=== PATIENT | male | born 1955 | race Caucasian/White ===

== ENCOUNTER 2023-08-31 10:40 | Emergency (ER) | payer MEDICARE ==
[~2023-08-31] VITALS: Ht 172.7 cm; Wt 114.0 kg
[2023-08-31 11:05] VITALS: BP 146/95; PULSE 80; O2SAT 96
[2023-08-31] MEDS ORDERED: morphine 2 MG/ML inj. syringe IM ONE (12:10)
[2023-08-31] MEDS ORDERED: ondansetron 4mg rapidly disintigrating tab PO ONE (12:10)
[2023-08-31] MEDS ORDERED: predniSONE 20 mg tablet PO ONE (12:10)
[2023-08-31] MEDS ORDERED: ketorolac tromethamine 15mg/ml inj. IM ONE (12:10)
[2023-08-31] MEDS ORDERED: CYCL-1 PO (12:19)
[2023-08-31] MEDS ORDERED: PRED50TA PO (12:19)
[2023-08-31] MEDS ORDERED: IBUP-1984 PO (12:19)
[2023-08-31 12:24] VITALS: RESP 18
[2023-08-31 17:16] VITALS: TEMP 98
--- NOTE | 2023-08-31 20:24 | NUR ---
agree with birgit automatic toe laster's assessment, reviewed.
== END 2023-08-31 20:26 | disposition home or self-care (01) ==
LOC: ER 10:41
DX: S39.012A Strain of muscle, fascia and tendon of lower back, initial encounter (principal); Z88.5 Allergy status to narcotic agent; Z79.899 Other long term (current) drug therapy; X58.XXXA Exposure to other specified factors, initial encounter; Y93.89 Activity, other specified; Y92.89 Other specified places as the place of occurrence of the external cause; Y99.8 Other external cause status
CPT/HCPCS: 96372; 99284; J1885; J2270; J7512

== ENCOUNTER 2024-09-03 08:13 | Day surgery (SDC) | payer MEDICARE ==
[2024-08-30 15:33] LABS: BASOPHILS # (AUTO) 0.1 X10'3 (0-0.2); BASOPHILS % (AUTO) 0.7 % (0-1); EOSINOPHILS # (AUTO) 0.4 X10'3 (0-0.9); EOSINOPHILS % (AUTO) 4.9 % (0-6); LYMPHOCYTES # (AUTO) 1.6 X10'3 (1.1-4.8); MEAN CORPUSCULAR HEMOGLOBIN 30.1 PG (27.0-31.0); MEAN CORPUSCULAR HGB CONC 33.9 g/dL (33.0-36.5); MEAN CORPUSCULAR VOLUME 88.9 FL (78-98); MEAN PLATELET VOLUME 8.1 FL (7.4-10.4); MONOCYTES # (AUTO) 0.6 X10'3 (0-0.9); MONOCYTES % (AUTO) 7.4 % (2-12); NEUTROPHILS # (AUTO) 5.1 X10'3 (1.8-7.7); PRE OP HEMATOCRIT 45.9 % (42.0-52.0); PRE OP HEMOGLOBIN 15.6 g/dL (14.0-17.9); PRE OP PLATELET COUNT 219 X10'3 (140-440); PRE OP WHITE BLOOD COUNT 7.7 10'3 (4.8-10.8); RED BLOOD COUNT 5.16 X10'6 (4.70-6.10); RED CELL DISTRIBUTION WIDTH 14.1 % (11.5-14.5)
[2024-08-30 15:43] LABS: ALBUMIN 3.9 G/DL (3.4-5.0); ALBUMIN/GLOBULIN RATIO 1.1 (1.1-1.5); ALKALINE PHOSPHATASE 53 IU/L (46-116); BLOOD UREA NITROGEN 17 MG/DL (7-18); BUN/CREATININE RATIO 18.9 (10.0-20.0); CALCIUM 8.8 MG/DL (8.5-10.1); CHLORIDE 106 MMOL/L (99-107); PRE OP ALT 41 U/L (30-65); PRE OP ANION GAP 8 (8-16); PRE OP AST 19 U/L (10-37); PRE OP BILIRUB, TOTAL 0.5 MG/DL (0.0-1.0); PRE OP GLUCOSE 131 MG/DL (70-104); PRE OP POTASSIUM 4.1 MMOL/L (3.4-5.1); PRE OP SODIUM 141 MMOL/L (135-145); TOTAL CARBON DIOXIDE 27.2 MMOL/L (24-32); TOTAL PROTEIN 7.4 G/DL (6.4-8.2); eGFR 84 ML/MIN
[~2024-09-03] VITALS: Ht 172.7 cm; Wt 113.9 kg
[2024-09-03] VITALS (8 sets, daily range): BP systolic 97–139; BP diastolic 62–81; PULSE 76–83; RESP 10–16; TEMP 98.4; O2SAT 92–100
[~2024-09-03 08:13] MED LIST: FLUT1BLS11 INH; IBUPROFEN; TYLENOL ARTHRITIS; ceFAZolin 2gm in dextrose, iso 50 ML IV ONE; clindamycin 600mg/D5W 50ml 50 ML IV ONE
[2024-09-03] MEDS ORDERED: labetalol 20mg/4ml (5mg/ml) syringe IV PRN (09:35)
[2024-09-03] MEDS ORDERED: ringers solution, lacted 1,000 ML IV SCH (09:35)
[2024-09-03] MEDS ORDERED: morphine 2 MG/ML inj. syringe IV PRN (09:35)
[2024-09-03] MEDS ORDERED: ondansetron/PF 4mg/2ml inj IV PRN (09:35)
[2024-09-03] MEDS ORDERED: fentaNYL/PF 50MCG/1 ML 2ML syringe IV PRN ×2 (09:35)
[2024-09-03] MEDS ORDERED: morphine 4 MG/ML inj SYRINge IV PRN (09:35)
[2024-09-03] MEDS ORDERED: hydrALAZINE 20mg/ml inj. IV PRN (09:35)
[2024-09-03] MEDS ORDERED: BUPIVAcaine/PF 2.5mg/ml (0.25%) 10ml vial ONE (09:59)
[2024-09-03] MEDS ORDERED: LIDOcaine 2% (20mg/ml) 5ml vial ONE (09:59)
[2024-09-03] MEDS: famotidine 20mg tablet PO ONE (10:06)
[2024-09-03] MEDS: ringers solution, lacted 1,000 ML IV SCH (10:08)
[2024-09-03] MEDS ORDERED: midazolam 1 mg/ML 2ml injection ONE ×2 (10:21→10:43)
[2024-09-03] MEDS ORDERED: flumazenil 0.1 mg/ml inj. 10mL vial IV ONE (10:43)
[2024-09-03] MEDS: BUPIVAcaine/PF 5 MG/ML 10ML VIAL SQ ONE (10:44)
== END 2024-09-03 11:31 | disposition home or self-care (01) ==
LOC: PAS 08:13
PROVIDERS: ATTEND Orthopaedic Surgery Hand Surgery
DX: G56.02 Carpal tunnel syndrome, left upper limb (principal); J45.909 Unspecified asthma, uncomplicated; E66.9 Obesity, unspecified; I25.2 Old myocardial infarction; M19.90 Unspecified osteoarthritis, unspecified site; Z87.891 Personal history of nicotine dependence; Z79.1 Long term (current) use of non-steroidal anti-inflammatories (NSAID); Z79.899 Other long term (current) drug therapy; Z98.41 Cataract extraction status, right eye; Z98.42 Cataract extraction status, left eye; Z98.890 Other specified postprocedural states; Z68.38 Body mass index [BMI] 38.0-38.9, adult; Z88.5 Allergy status to narcotic agent
CPT/HCPCS: 36415; 64721; 80053; 82948; 85025; A4215; A6449; J0665; J0690; J2003; J2250; J3490; J7030; J7120; Z7506; Z7512; Z7610